=== PATIENT | female | born 1985 | race African-American/Black ===

== ENCOUNTER 2022-01-01 03:39 | Emergency (ER) | payer BC, MEDICAID ==
[~2022-01-01] VITALS: Ht 167.6 cm; Wt 110.0 kg
[~2022-01-01 03:39] MED LIST: UNK MEDS
[2022-01-01] MEDS ORDERED: METOCLOPRAMIDE HCL 10MG/2ML VIAL IV STA (04:11)
[2022-01-01] MEDS ORDERED: SODIUM CHLORIDE 0.9% 1,000 ML IV ONE ×2 (04:15→05:30)
[2022-01-01 04:44] LABS: BASOPHILS % 0.6 % (0.0-2.0); HEMATOCRIT. 37.7 % (36.0-48.0); HEMOGLOBIN. 12.3 g/dL (12.0-16.0); LYMPHOCYTES % 10.4 % (20.0-50.0); MEAN CORPUSCULAR VOLUME 85.8 fL (81.0-99.0); MEAN PLATELET VOLUME 8.4 fl (7.4-10.4); MONOCYTES % 2.2 % (2.0-8.0); NEUTROPHILS % 86.8 % (40.0-76.0); PLATELET 440 x1000/uL (130-400); RED BLOOD CELL COUNT 4.39 mill/uL (4.2-5.4); RED CELL DISTRIBUTION WIDTH 14.6 % (11.6-14.6)
[2022-01-01 05:00] LABS: CHLORIDE 101 mEq/L (98-107)
[2022-01-01 05:08] LABS: BETA HYDROXYBUTYRATE 2.3 mMol/L (0.0-0.3)
[2022-01-01 05:37] LABS: CLARITY URINE CLEAR (CLEAR); COLOR URINE YELLOW (YELLOW); KETONES URINE 2+ (NEGATIVE); LEUKOCYTE ESTERASE URINE NEGATIVE (NEGATIVE); NITRITE URINE NEGATIVE (NEGATIVE); OCCULT BLOOD URINE TRACE (NEGATIVE); PROTEIN URINE 2+ (NEGATIVE); SPECIFIC GRAVITY URINE 1.022 (1.005-1.030); UROBILINOGEN URINE 0.2 E.U./dL (0.2-1.0)
[2022-01-01] MEDS ORDERED: INSULIN REGULAR (HUMULIN R) 300UNITS/3ML VIAL IV ONE (07:45)
[2022-01-01] MEDS ORDERED: ONDANSETRON HCL 4MG/2ML INJ IV ONE (09:00)
[2022-01-01] MEDS ORDERED: ONDA4TAB11 PO (11:20)
[2022-01-01 11:46] VITALS: BP 176/91
== END 2022-01-01 11:56 | disposition home or self-care (01) ==
LOC: ER 03:39
DX: E10.65 Type 1 diabetes mellitus with hyperglycemia (principal); R11.2 Nausea with vomiting, unspecified; I10 Essential (primary) hypertension; Z79.4 Long term (current) use of insulin
CPT/HCPCS: 36415; 80053; 81003; 81025; 82010; 82962; 83690; 85025; 96361; 96374; 96375; 99285; J1815; J2405; J2765; J7030

== ENCOUNTER 2022-12-26 08:50 | Inpatient (IN) | payer MEDICAID ==
[~2022-12-26] VITALS: Ht 167.6 cm; Wt 78.2 kg
[~2022-12-26 08:50] MED LIST changes: +ONDA4TAB11 PO
[2022-12-26] MEDS ORDERED: SODIUM CHLORIDE 0.9% 1,000 ML IV ONE ×2 (09:30→10:45)
[2022-12-26 10:19] LABS: BG BASE EXCESS -17.3 mmol/L (-2.0-2.0); BG CARBOXYHEMOGLOBIN 0.3 % (0.5-1.5); BG FRACTION INSPIRED OXYGEN 21; BG HCO3 ACT 7.1 mmol/L (22.0-26.0); BG METHEMOGLOBIN 0.2 % (0.0-1.5); BG OXYHEMOGLOBIN 97.5 % (94.0-97.0); BG PCO2 15.9 mmHg (35.0-45.0); BG SAMPLE SITE RIGHT BRACHIAL; BG TOTAL HEMOGLOBIN 12.5 g/dL (12.0-18.0); BG VENT MODE ROOM AIR
[2022-12-26] MEDS ORDERED: ONDANSETRON HCL 4MG/2ML INJ IV STA (10:48)
[2022-12-26 11:09] LABS: HEMATOCRIT. 37.4 % (36.0-48.0); HEMOGLOBIN. 11.9 g/dL (12.0-16.0); MEAN CORPUSCULAR HEMOGLOBIN 27.9 pg (28.0-32.0); MEAN CORPUSCULAR VOLUME 87.2 fL (81.0-99.0); MEAN PLATELET VOLUME 8.5 fl (7.4-10.4); PLATELET 511 x1000/uL (130-400); RED BLOOD CELL COUNT 4.28 mill/uL (4.2-5.4); RED CELL DISTRIBUTION WIDTH 16.9 % (11.6-14.6)
[2022-12-26] MEDS ORDERED: FAMOTIDINE 20MG/2ML VIAL IV SCH (11:10)
[2022-12-26] MEDS ORDERED: MORPHINE SULFATE 4 MG/ML CPJ (NOT FOR IM USE) IV SCH (11:10)
[2022-12-26 11:39] LABS: PLATELET ESTIMATE INCREASED
[2022-12-26 11:41] LABS: HCG SCREEN NEGATIVE
[2022-12-26 11:41] LABS: CHLORIDE 101 mEq/L (98-107)
[2022-12-26 11:56] LABS: BETA HYDROXYBUTYRATE 7.4 mMol/L (0.0-0.3)
[2022-12-26 12:18] LABS: PROTHROMBIN TIME 10.3 sec (9.6-11.0)
[2022-12-26] MEDS ORDERED: INSULIN REGULAR 100U/100ML PMX 100 ML IV SCH ×3 (12:30→19:00)
[2022-12-26 12:48] LABS: HEMATOCRIT. 35.7 % (36.0-48.0); HEMOGLOBIN. 11.4 g/dL (12.0-16.0); MEAN CORPUSCULAR HEMOGLOBIN 27.7 pg (28.0-32.0); MEAN CORPUSCULAR VOLUME 87.1 fL (81.0-99.0); MEAN PLATELET VOLUME 8.4 fl (7.4-10.4); PLATELET 526 x1000/uL (130-400); RED CELL DISTRIBUTION WIDTH 16.6 % (11.6-14.6)
[2022-12-26] MEDS ORDERED: DEXTROSE 50% WATER 50ML SYRINGE IV PRN ×2 (13:30)
[2022-12-26 13:56] LABS: PLATELET ESTIMATE INCREASED
[2022-12-26] MEDS: SODIUM CHLORIDE 0.9% 1,000 ML IV SCH ×2 (14:00→22:24)
[2022-12-26] MEDS: BLOOD SUGAR DIAGNOSTIC STRIP TEST SCH ×7 (14:27→22:25)
[2022-12-26 14:51] LABS: PHOSPHORUS 4.9 mg/dL (2.5-4.9)
[2022-12-26 16:33] LABS: CLARITY URINE TURBID (CLEAR); COLOR URINE DARK YELLOW (YELLOW); KETONES URINE 3+ (NEGATIVE); LEUKOCYTE ESTERASE URINE 3+ (NEGATIVE); NITRITE URINE NEGATIVE (NEGATIVE); OCCULT BLOOD URINE 3+ (NEGATIVE); PH URINE 5.5 (4.5-8.0); PROTEIN URINE 1+ (NEGATIVE); SPECIFIC GRAVITY URINE 1.021 (1.005-1.030); UROBILINOGEN URINE 0.2 E.U./dL (0.2-1.0)
[2022-12-26] MEDS ORDERED: LOSA50TA41 PO (16:54)
[2022-12-26] MEDS ORDERED: ATOR20TA65 PO (16:55)
[2022-12-26] MEDS ORDERED: INSU100I12 SQ (16:56)
[2022-12-26] MEDS ORDERED: BLOO-1113 HHN (16:57)
[2022-12-26] MEDS ORDERED: SEMA2PEN SQ (17:00)
[2022-12-26] MEDS: ONDANSETRON HCL 4MG/2ML INJ IV PRN (21:52)
[2022-12-27] VITALS (18 sets, daily range): BP systolic 113–158; BP diastolic 43–109; PULSE 88–135; RESP 7–128; TEMP 98–98.8
[2022-12-27] MEDS ORDERED: DEXTROSE 50% WATER 50ML SYRINGE IV PRN ×4 (00:30→11:15)
[2022-12-27] MEDS ORDERED: INSULIN LISPRO 100 UNITS/ML SUBCUT SCH (00:35)
[2022-12-27] MEDS: METOCLOPRAMIDE HCL 10MG/2ML VIAL IV PRN ×3 (01:58→20:45)
[2022-12-27] MEDS: SODIUM CHLORIDE 0.9% 1,000 ML IV SCH ×2 (03:13→06:13)
[2022-12-27] MEDS ORDERED: INSULIN REGULAR 100U/100ML PMX 100 ML IV SCH (03:45)
[2022-12-27] MEDS: BLOOD SUGAR DIAGNOSTIC STRIP TEST SCH ×10 (04:33→21:00)
[2022-12-27 05:23] LABS: HEMATOCRIT. 33.2 % (36.0-48.0); HEMOGLOBIN. 10.5 g/dL (12.0-16.0); MEAN CORPUSCULAR HEMOGLOBIN 27.2 pg (28.0-32.0); MEAN CORPUSCULAR VOLUME 86.3 fL (81.0-99.0); MEAN PLATELET VOLUME 8.3 fl (7.4-10.4); PLATELET 528 x1000/uL (130-400); RED BLOOD CELL COUNT 3.84 mill/uL (4.2-5.4); RED CELL DISTRIBUTION WIDTH 16.9 % (11.6-14.6)
[2022-12-27] MEDS ORDERED: METOCLOPRAMIDE HCL 10MG/2ML VIAL IV SCH (06:00)
[2022-12-27 06:06] LABS: PHOSPHORUS 3.7 mg/dL (2.5-4.9)
[2022-12-27] MEDS ORDERED: BLOOD SUGAR DIAGNOSTIC STRIP TEST SCH ×2 (06:50→11:00)
[2022-12-27] MEDS ORDERED: DEXT 5%/0.45% NACL 1000ML 1,000 ML IV SCH (08:00)
[2022-12-27] MEDS: PANTOPRAZOLE SODIUM 40 MG/VIAL IV SCH (09:18)
[2022-12-27] MEDS: ONDANSETRON HCL 4MG/2ML INJ IV PRN ×2 (09:18→14:51)
[2022-12-27] MEDS: CEFTRIAXONE 1,000 MG in DEXTROSE 5% WATER 50 ML IV SCH (09:43)
[2022-12-27] MEDS ORDERED: INSULIN GLARGINE 100 UNITS/ML SUBCUT SCH (10:00)
[2022-12-27 10:27] LABS: PHOSPHORUS 4.7 mg/dL (2.5-4.9)
[2022-12-27] MEDS ORDERED: INSULIN GLARGINE 100 UNITS/ML SUBCUT NR (11:15)
[2022-12-27] MEDS: INSULIN LISPRO 100 UNITS/ML SUBCUT SCH ×3 (12:11→21:00)
[2022-12-27 13:55] LABS: PLATELET ESTIMATE INCREASED
[2022-12-27 15:36] LABS: CHLORIDE 111 mEq/L (98-107)
[2022-12-27 16:25] LABS: HEPATITIS B SURFACE ANTIGEN NEGATIVE
[2022-12-27 21:07] LABS: CHLORIDE 111 mEq/L (98-107)
[2022-12-27] MEDS: INSULIN GLARGINE 100 UNITS/ML SUBCUT SCH (22:18)
[2022-12-27 23:09] LABS: *AMPHETAMINES SCREEN URINE NEGATIVE (NEGATIVE); *BARBITURATES SCREEN URINE NEGATIVE (NEGATIVE); *BENZODIAZEPINES SCREEN URINE NEGATIVE (NEGATIVE); *COCAINE SCREEN URINE NEGATIVE (NEGATIVE); CANNABINOID URINE SCREEN NEGATIVE (NEGATIVE); METHADONE URINE SCREEN NEGATIVE (NEGATIVE); OPIATES URINE SCREEN NEGATIVE (NEGATIVE); PHENCYCLIDINE URINE SCREEN NEGATIVE (NEGATIVE)
[2022-12-28] VITALS: BP 117/68; PULSE 108; RESP 19; TEMP 98.2
[2022-12-28] MEDS: METOCLOPRAMIDE HCL 10MG/2ML VIAL IV PRN ×2 (02:50→11:48)
[2022-12-28 04:00] VITALS: BP 100/53; PULSE 98; RESP 18; TEMP 98.1
[2022-12-28] MEDS: BLOOD SUGAR DIAGNOSTIC STRIP TEST SCH ×2 (06:00→12:43)
[2022-12-28] MEDS: INSULIN LISPRO 100 UNITS/ML SUBCUT SCH ×2 (06:00→12:46)
[2022-12-28 06:23] LABS: BASOPHILS % 0.3 % (0.0-2.0); EOSINOPHILS % 0.2 % (0.0-5.0); HEMATOCRIT. 27.6 % (36.0-48.0); HEMOGLOBIN. 9.4 g/dL (12.0-16.0); LYMPHOCYTES % 22.5 % (20.0-50.0); MEAN CORPUSCULAR HEMOGLOBIN 28.1 pg (28.0-32.0); MEAN CORPUSCULAR VOLUME 82.6 fL (81.0-99.0); MEAN PLATELET VOLUME 7.8 fl (7.4-10.4); PLATELET 423 x1000/uL (130-400); RED BLOOD CELL COUNT 3.34 mill/uL (4.2-5.4); RED CELL DISTRIBUTION WIDTH 15.9 % (11.6-14.6)
[2022-12-28 06:25] LABS: CHLORIDE 114 mEq/L (98-107)
[2022-12-28 08:00] VITALS: BP 106/53; PULSE 100; RESP 20; TEMP 97.6
[2022-12-28] MEDS: PANTOPRAZOLE SODIUM 40 MG/VIAL IV SCH (09:11)
[2022-12-28] MEDS: INSULIN GLARGINE 100 UNITS/ML SUBCUT SCH (10:05)
[2022-12-28] MEDS ORDERED: LEVO-65 MT (10:11)
[2022-12-28] MEDS ORDERED: INSU100I28 SQ (10:11)
[2022-12-28] MEDS: CEFTRIAXONE 1,000 MG in DEXTROSE 5% WATER 50 ML IV SCH (11:03)
[2022-12-28 12:00] VITALS: BP 115/70; PULSE 103; RESP 20; TEMP 97.7
[2022-12-28 12:04] VITALS: BP 115/70; PULSE 103; TEMP 97.7; O2SAT 98
[2022-12-28] MEDS ORDERED: INSULIN GLARGINE 100 UNITS/ML SUBCUT SCH (22:00)
== END 2022-12-28 13:35 | disposition home health service (06) | DRG 720 ==
LOC: ER 08:50 → MICUSO 13:19 → EDBEDREQ 13:26 → EDBEDREQTM 13:26 → EDBEDREQSVC 20:51 → 3WST 23:49 → CVICU 12-27 02:45 → 7WST 12-27 21:40
PROVIDERS: ADMIT Internal Medicine; ATTEND Internal Medicine
DX: A41.9 Sepsis, unspecified organism (principal); G93.40 Encephalopathy, unspecified; E11.10 Type 2 diabetes mellitus with ketoacidosis without coma; I10 Essential (primary) hypertension; N39.0 Urinary tract infection, site not specified; E86.9 Volume depletion, unspecified; F17.210 Nicotine dependence, cigarettes, uncomplicated; Z83.3 Family history of diabetes mellitus
CPT/HCPCS: 36415; 36600; 71045; 80048; 80053; 80305; 81003; 82010; 82375; 82805; 82962; 83036; 83735; 84100; 84145; 84484; 84703; 85025; 86803; 87340; 93005; 99291; C9113; J0696; J1815; J2270; J2405; J2765; J3490; J7030; J7060

== ENCOUNTER 2024-01-07 03:25 | Emergency (ER) | payer MEDICAID ==
[~2024-01-07] VITALS: Ht 162.6 cm; Wt 95.0 kg
[~2024-01-07 03:25] MED LIST changes: +ATOR20TA65 PO; +BLOO-1113 HHN; +CLON0.1T PO; +INSU100I12 SQ; +INSU100I28 SQ; +LANTUSUD SUBCUT; +LEVO-65 MT; +LOSA50TA41 PO; +METO5TAB2 PO; -ONDA4TAB11 PO; +SEMA2PEN SQ; -UNK MEDS
[2024-01-07 03:26] VITALS: O2SAT 99
[2024-01-07] MEDS: DEXTROSE 5% WATER 1,000 ML IV ONE (04:07)
[2024-01-07 04:17] LABS: BASOPHILS % 0.5 % (0.0-2.0); EOSINOPHILS % 1.6 % (0.0-5.0); HEMATOCRIT. 32.5 % (36.0-48.0); HEMOGLOBIN. 10.8 g/dL (12.0-16.0); MEAN CORPUSCULAR HEMOGLOBIN 27.6 pg (28.0-32.0); MEAN CORPUSCULAR HGB CONC 33.2 g/dL (31.0-37.0); MEAN PLATELET VOLUME 7.9 fl (7.4-10.4); NEUTROPHILS % 61.9 % (40.0-76.0); PLATELET 367 x1000/uL (130-400); RED BLOOD CELL COUNT 3.92 mill/uL (4.2-5.4); RED CELL DISTRIBUTION WIDTH 16.7 % (11.6-14.6); WHITE BLOOD COUNT 8.2 x1000/uL (4.5-11.0)
[2024-01-07 04:21] LABS: CHLORIDE 109 mEq/L (98-107); POTASSIUM 3.5 mEq/L (3.5-5.1); SODIUM 141 mEq/L (136-145)
[2024-01-07 04:22] LABS: CARBON DIOXIDE 25 mEq/L (21-32)
[2024-01-07 04:23] LABS: CALCIUM 8.9 mg/dL (8.7-10.4)
[2024-01-07 04:27] LABS: CREATININE 1.2 mg/dL (0.6-1.0)
[2024-01-07 04:28] LABS: GLUCOSE 83 mg/dL (70-105); UREA NITROGEN BLOOD 20 mg/dL (9-23)
[2024-01-07 04:29] LABS: ACETAMINOPHEN < 2 ug/mL (10-30)
[2024-01-07 04:45] LABS: ETHANOL BLOOD < 10 mg/dL (<10); TROPONIN I HIGH SENSITIVITY < 4 ng/L (3.0-34)
[2024-01-07 05:04] LABS: HCG SCREEN NEGATIVE
[2024-01-07 07:13] VITALS: BP 142/86; PULSE 69; RESP 18; TEMP 98.2
== END 2024-01-07 07:13 | disposition home or self-care (01) ==
LOC: ER 03:34
DX: E11.649 Type 2 diabetes mellitus with hypoglycemia without coma (principal); R41.82 Altered mental status, unspecified; I10 Essential (primary) hypertension; Z79.899 Other long term (current) drug therapy
CPT/HCPCS: 80048; 80307; 80329; 80320; 82962; 84703; 83605; 85025; 84484; 36415; 71045; 70450; 99284; J7070; G0480